=== PATIENT | female | born 1955 | race Caucasian/White ===

== ENCOUNTER 2017-04-05 09:28 | Day surgery (SDC) | payer BC ==
[~2017-04-05 09:28] MED LIST: Buffered Lidocaine 0.9% SYRIN* 5 ML/SYR SYRINGE INTRADERM ONE; Famotidine IV* 10 MG/ML 2 ML (20 mg) IV ONE; Morphine INJ* 2 MG/ML 1 ML CARPUJECT IV PRN; PROCHLORPERAZINE INJ 5 MG/ML 2 ML VIAL IV PRN; Scopolamine 1.5 mg* PATCH TRANSDERM PRN; fentaNYL* 50 MCG/ML 2 ML VIAL (100 MCG VIAL) IV PRN; oxyCODONE/Acetamin 5/325 MG* TAB PO PRN
[2017-04-05] MEDS ORDERED: Bupivacaine 0.5% SDV PF* 30 ML VIAL ONE (09:30)
[2017-04-05] MEDS ORDERED: Lidocaine 2% PF* 10 ML AMP ONE (09:31)
[2017-04-05] MEDS ORDERED: fentaNYL* 50 MCG/ML 2 ML VIAL (100 MCG VIAL) ONE (09:39)
[2017-04-05] MEDS ORDERED: Midazolam* 1 MG/ML 5 ML VIAL (5 MG) ONE (09:39)
[2017-04-05] MEDS ORDERED: KETAMINE HCL* 50 MG/ML 10 ML VIAL ONE (09:39)
[2017-04-05] MEDS ORDERED: Buffered Lidocaine 0.9% SYRIN* 5 ML/SYR SYRINGE ONE (09:46)
[2017-04-05] MEDS ORDERED: Famotidine IV* 10 MG/ML 2 ML (20 mg) ONE (09:46)
[2017-04-05] MEDS ORDERED: ceFAZolin 2 GM PREMIX (*) 50 ML IVPB ONE (09:46)
[2017-04-05] MEDS ORDERED: Ketorolac INJ* 30 MG/ML 1 ML VIAL ONE (11:29)
[2017-04-05] MEDS ORDERED: Phenylephrine IV* 40 MCG/ML 10 ML SYRINGE ONE (11:29)
[2017-04-05] MEDS ORDERED: Ondansetron INJ* 2 MG/ML VIAL ONE (11:29)
[2017-04-05] MEDS ORDERED: Propofol* 10 MG/ML 20 ML BTL IV PUSH ONE (11:29)
[2017-04-05] MEDS ORDERED: Lidocaine 2% PF * 5 ML VIAL ONE (11:29)
[2017-04-05] MEDS ORDERED: Dexamethasone IV* 4 MG/ML 1 ML (4 MG) ONE (11:29)
[2017-04-05 13:28] VITALS: BP 111/74
--- NOTE | 2017-04-06 03:19 | OP ---
DATE OF OPERATION: 04/05/17 - [facility] DATE OF : 57 ATTENDING SURGEON: Jerald Elliott MD SERVICE ADMINISTRATOR: Dina Kaba PA-C ANESTHESIOLOGIST: Esteban Lucero MD ANESTHESIA: General PRE-OP DIAGNOSIS: Right hallux valgus and right painful bunionette. POST-OP DIAGNOSIS: Right hallux valgus and right painful bunionette. OPERATIVE PROCEDURE: Lapidus procedure right bunion and shaving lateral 5th metatarsal head. DESCRIPTION OF PROCEDURE: The patient was taken to the operating room where a longitudinal incision was made in the 1st and 2nd webspace dorsally. Through this incision, we exposed the dorsolateral capsule around the sesamoid. This was incised longitudinally and then we reflected the adductor tendon away from the lateral border of the sesamoid. A longitudinal incision was made straight medial over the medial eminence with the dorsal and plantar flap exposed to protect the dorsal and plantar nerves. Transverse capsulotomy made at the level of the first metatarsal, reflected plantarward and allowed shaving of the medial eminence with a microsagittal saw. We then extended the medial incision proximally over the base of the 1st TMT joint. Capsulotomy was performed and I removed the base of the 1st metatarsal by a microsagittal saw cut. We then recut the cuneiform surface in slight valgus. A power cady was used to prepare the joints for arthrodesis by roughening the subchondral bone and then we derotated the first metatarsal probably 5 degrees along its long axis and then pinned this longitudinally using a pointer reduction clamp. A dorsal F3 plate and a medial F3 plate were used to hold the joint in neutral alignment. We then took an x-ray intraoperatively showing the closure of the IM angle. The redundant capsule medially was then excised with a sharp 15 blade and repaired the capsule with interrupted 0 Vicryl sutures. This corrected the first MTP joint deformity. Both the medial and lateral wounds were then closed with a 2-0 Vicryl and 3-0 nylon for the skin. We made a short 3-cm incision over the dorsolateral aspect of the 5th MTP. Capsulotomy was performed longitudinally, reflected laterally and plantar to allow visualization of the lateral metatarsal head, which was removed with a microsagittal saw. We then repaired the capsule with 2-0 Vicryl sutures, 4-0 nylon for the skin, and a compression dressing and plaster splint applied. [id number]/[facility] #: [id number] [facility]ITALMatheus
[2017-04-08] MEDS ORDERED: Scopolomine PATCH Remove* 1 NOTE MISC PATCH OFF ONE (05:57)
== END 2017-04-05 14:00 | disposition home or self-care (01) ==
LOC: OR 09:28
PROVIDERS: ATTEND Orthopaedic Surgery
DX: M20.11 Hallux valgus (acquired), right foot (principal); M21.621 Bunionette of right foot; F17.210 Nicotine dependence, cigarettes, uncomplicated; M20.12 Hallux valgus (acquired), left foot; M19.071 Primary osteoarthritis, right ankle and foot; D16.31 Benign neoplasm of short bones of right lower limb
CPT/HCPCS: 88304; 88311; C1713; C1776; J0690; J1100; J1885; J2001; J2250; J2405; J2704; J3010

== ENCOUNTER 2017-11-25 07:02 | Emergency (ER) | payer BC ==
[2017-11-25 07:20] VITALS: BP 123/93
--- NOTE | 2017-11-25 07:41 | UC ---
Skin Complaint HPI - HPI Summary HPI Summary: 62 yo female with left trunk tick bite noted this AM was gardening yesterday - History of Current Complaint Chief Complaint: UCSkin Time Seen by Provider: 11/25/17 07:27 Stated Complaint: SKIN COMPLAINT Hx Obtained From: Patient Onset/Duration: Sudden Onset - noted this AM on arising Skin Exposure Onset/Duration: Hours Ago Timing: Constant Onset Severity: Severe Current Severity: Severe Pain Intensity: 8 - freak out mental anguish Pain Scale Used: 0-10 Numeric Aggravating Factor(s): Nothing Alleviating Factor(s): Nothing Associated Signs & Symptoms: Positive: Negative - Allergy/Home Medications Allergies/Adverse Reactions: Allergies Allergy/AdvReac Type Severity Reaction Status Date / Time No Known Allergies Allergy Verified 11/25/17 07:13 Home Medications: Home Medications Pseudoephedrine HCL ER TAB* [Sudafed 12 Hour*] 120 mg PO BID PRN 11/25/17 [ History Confirmed 11/25/17] Review of Systems Constitutional: Negative Skin: Negative Eyes: Negative ENT: Negative Respiratory: Negative Cardiovascular: Negative Gastrointestinal: Negative Genitourinary: Negative Motor: Negative Neurovascular: Negative Musculoskeletal: Negative Neurological: Negative Psychological: Anxious Is Patient Immunocompromised?: No All Other Systems Reviewed And Are Negative: Yes PMH/Surg Hx/FS Hx/Imm Hx Previously Healthy: Yes - Surgical History Surgical History: Yes Surgery Procedure, Year, and Place: tubal ligation, 1980. hemorrhoidectomy, 1979. lasik. R foot - Family History Known Family History: Positive: Hypertension - Social History Alcohol Use: Rare Alcohol Amount: socially Substance Use Type: None Smoking Status (MU): Light Every Day Tobacco Smoker Type: Cigarettes Amount Used/How Often: 2-3 daily Physical Exam Triage Information Reviewed: Yes Appearance: Well-Appearing, No Pain Distress, Well-Nourished Vital Signs: Initial Vital Signs Temp 97.9 F 11/25/17 07:14 Pulse 96 11/25/17 07:14 Resp 18 11/25/17 07:14 BP 123/93 11/25/17 07:14 Pulse Ox 97 11/25/17 07:14 Vital Signs Reviewed: Yes Eyes: Positive: Conjunctiva Clear ENT: Positive: Hearing grossly normal. Negative: Nasal congestion, Nasal drainage, Tonsillar swelling, Tonsillar exudate, Trismus, Muffled voice, Hoarse voice Neck: Positive: Supple, Nontender Respiratory: Positive: Lungs clear, Normal breath sounds, No respiratory distress Cardiovascular: Positive: RRR, No Murmur Musculoskeletal: Positive: ROM Intact, No Edema Neurological: Positive: Alert Psychological Exam: Normal Skin Exam: Other - tick left lat chest Course/Dx - Course Course Of Treatment: PROCEDURE: tick removal. tick removed in toto with tick twister. pt desires LD prophylaxis - Diagnoses Provider Diagnoses: tick bite. lyme disease prophylaxis. smoker. elevated BP without dx of HTN Discharge - Sign-Out/Discharge Documenting (check all that apply): Discharge/Admit/Transfer - Discharge Plan Condition: Stable Disposition: HOME Prescriptions: DOXYcycline CAP(*) [DOXYcycline 100MG CAP(*)] 200 mg PO ONCE #2 cap Patient Education Materials: Tick Bite (ED) Referrals: Bob Howard DO [Primary Care Provider] - Additional Instructions: call for any questions return for any problems - Billing Disposition and Condition Condition: STABLE Disposition: HOME
== END 2017-11-25 07:41 | disposition home or self-care (01) ==
LOC: UCCORT 07:02
DX: S20.362A Insect bite (nonvenomous) of left front wall of thorax, initial encounter (principal); F17.210 Nicotine dependence, cigarettes, uncomplicated; R03.0 Elevated blood-pressure reading, without diagnosis of hypertension; W57.XXXA Bitten or stung by nonvenomous insect and other nonvenomous arthropods, initial encounter; Y92.9 Unspecified place or not applicable; Z29.8 Encounter for other specified prophylactic measures
CPT/HCPCS: 99212; G0463